=== PATIENT | female | born 1965 | race Caucasian/White ===

== ENCOUNTER 2019-11-17 12:58 | Outpatient (REF) | payer OTHER, SELFPAY ==
--- NOTE | 2019-11-17 | US_ITS ---
EXAMINATION: US PELVIS, COMPLETE CLINICAL INFORMATION: Leiomyomata of uterus; postmenopausal patient. COMPARISON: Pelvic ultrasound dated 02/27/2015. TECHNIQUE: Transabdominal and transvaginal imaging was performed. FINDINGS: The uterus is of normal size and echogenicity measuring 11.9 x 6.5 x 7.4 cm. The uterus is anteverted and anteflexed. The endometrial stripe is poorly visualized due to extensive fibroids. FIBROIDS: There are 7 dominant fibroids seen. There are further smaller fibroids which are not measured. 1. Location: Upper leftward body, subserosal. Size: 2.8 x 2.1 x 2.6 cm. Fibroid characteristics: Heterogeneous echotexture. 2. Location: Mid leftward uterine body, subserosal. Size: 4.0 x 3.3 x 3.4 cm. Fibroid characteristics: Heterogeneous echotexture, with shadowing calcifications. 3. Location: Mid fundus, anterior. Size: 2.8 x 1.8 x 2.0 cm. Fibroid characteristics: Heterogeneous echotexture. 4. Location: Posterior midline body, subendometrial. Size: 3.0 x 2.5 x 3.3 cm. Fibroid characteristics: Heterogeneous echotexture. 5. Location: Lower rightward body, myometrial. Size: 5.1 x 5.1 x 4.7 cm. Fibroid characteristics: Heterogeneously hyperechoic. 6. Location: Upper rightward body, subendometrial. Size: 3.4 x 2.6 x 2.5 cm. Fibroid characteristics: Heterogeneously isoechoic. 7. Location: Mid rightward body, myometrial. Size: 4.4 x 3.0 x 3.1 cm. Fibroid characteristics: Heterogeneously hypoechoic. Both ovaries are nonvisualized. There is no pelvic free fluid. No adnexal mass is seen. IMPRESSION: 1. Multiple uterine fibroids are seen, as above. 2. Due to uterine fibroid disease, the endometrial stripe is not visualized. 3. The bilateral ovaries are not visualized.
== END 2019-11-17 12:59 | disposition home or self-care (01) ==
LOC: HO.US 12:58
PROVIDERS: Visit Provider Nurse Practitioner Adult Health
DX: D25.9 Leiomyoma of uterus, unspecified (principal)
CPT/HCPCS: 76830; 76856

== ENCOUNTER 2020-12-31 10:26 | Outpatient (REF) | payer OTHER, SELFPAY ==
[2020-12-31 11:39] LABS: Hematocrit 38.4 % (37.0-47.0); Mean Corpuscular HGB Conc 33.9 g/dl (31.0-35.0); Mean Corpuscular Hemoglobin 30.9 pg (27.0-33.0); Mean Corpuscular Volume 91.2 fL (80.0-98.0); Mean Platelet Volume 9.4 fL (9.4-12.3); Platelet Count 395 X10*3/uL (160-400); Red Blood Count 4.21 X10*6/uL (4.20-5.50); Red Cell Distribution Width 13.7 % (11.0-16.0); White Blood Count 6.9 X10*3/uL (4.8-10.8)
[2020-12-31 12:19] LABS: Appearance Urine CLEAR; Color Urine YELLOW; Glucose Urine UA NEG (NEG); Leukocyte Esterase Urine NEG (NEG); Nitrite Urine NEG (NEG); Urine Blood 1+ (NEG); Urine Ketones NEG (NEG); Urine Protein TRACE MG/DL (NEG-TRACE)
[2020-12-31 12:27] LABS: Squamous Epithelial Cell Urine TRACE /LPF; WBC Urine 0 /HPF (0-4)
[2020-12-31 14:27] LABS: Alanine Aminotransferase 25 U/L (0-31); Albumin Level 4.4 g/dL (3.5-5.0); Alkaline Phosphatase 77 U/L (39-117); Anion Gap 16 (12-20); Aspartate Amino Transferase 23 U/L (5-31); Bilirubin Direct < 0.2 mg/dL (0.0-0.5); Bilirubin Total 0.3 mg/dL (0.0-1.0); Blood Urea Nitrogen 6 mg/dL (9-16); Calcium 9.2 mg/dL (8.4-10.2); Carbon Dioxide 21 mmol/L (22-29); Chloride 106 mmol/L (96-108); Cholesterol 203 mg/dL; Estimated Glomerular Filt Rate > 60; Glucose Random 71 mg/dL (60-115); HDL Cholesterol 87 mg/dL; LDL Cholesterol Calculated 101 mg/dl; Potassium 4.6 mmol/L (3.3-5.1); Sodium 138 mmol/L (135-145); Triglycerides 76 mg/dL
[2020-12-31 14:42] LABS: Thyroid Stimulating Hormone 1.02 uIU/mL (0.32-4.0)
== END 2020-12-31 10:27 | disposition home or self-care (01) ==
LOC: HO.HMGCLDS 10:26
PROVIDERS: PCP Internal Medicine; Visit Provider Internal Medicine
DX: I10 Essential (primary) hypertension (principal)
CPT/HCPCS: 36415; 80048; 80061; 80076; 81001; 81003; 84443; 85027

== ENCOUNTER 2022-02-15 07:18 | Outpatient (REF) | payer OTHER, SELFPAY ==
[2022-02-15 11:12] LABS: Hemoglobin 14.4 g/dl (12.0-16.0); Mean Corpuscular HGB Conc 33.5 g/dl (31.0-35.0); Mean Corpuscular Hemoglobin 30.4 pg (27.0-33.0); Mean Corpuscular Volume 90.7 fL (80.0-98.0); Mean Platelet Volume 9.6 fL (9.4-12.3); Platelet Count 373 X10*3/uL (160-400); Red Blood Count 4.74 X10*6/uL (4.20-5.50); Red Cell Distribution Width 12.8 % (11.0-16.0); White Blood Count 7.4 X10*3/uL (4.8-10.8)
[2022-02-15 11:29] LABS: Alanine Aminotransferase 15 U/L (0-31); Albumin Level 4.4 g/dL (3.5-5.0); Alkaline Phosphatase 84 U/L (39-117); Anion Gap 14 (12-20); Aspartate Amino Transferase 17 U/L (5-31); Bilirubin Direct 0.2 mg/dL (0.0-0.5); Bilirubin Total 0.5 mg/dL (0.0-1.0); Blood Urea Nitrogen 15 mg/dL (9-16); Calcium 9.7 mg/dL (8.4-10.2); Carbon Dioxide 24 mmol/L (22-29); Chloride 107 mmol/L (96-108); Cholesterol 234 mg/dL; Estimated Glomerular Filt Rate > 60; Glucose Random 98 mg/dL (60-115); HDL Cholesterol 74 mg/dL; LDL Cholesterol Calculated 148 mg/dl; Potassium 4.5 mmol/L (3.3-5.1); Sodium 140 mmol/L (135-145); Total Protein 7.1 g/dL (6.5-8.0); Triglycerides 64 mg/dL
[2022-02-15 11:50] LABS: Thyroid Stimulating Hormone 1.92 uIU/mL (0.32-4.0)
== END 2022-02-15 07:19 | disposition home or self-care (01) ==
LOC: HO.HMGCLDS 07:18
PROVIDERS: PCP Internal Medicine; Visit Provider Internal Medicine
DX: I10 Essential (primary) hypertension (principal)
CPT/HCPCS: 36415; 80048; 80061; 80076; 84443; 85027

== ENCOUNTER 2022-03-24 10:38 | Outpatient (REF) | payer OTHER, SELFPAY ==
--- NOTE | ~2022-03-24 | US_ITS ---
EXAMINATION: US PELVIS CLINICAL INFORMATION: Postmenopausal bleeding COMPARISON: 11/17/2019 TECHNIQUE: Ultrasound of the pelvis is performed using both transabdominal and transvaginal transducers along with Doppler. Transvaginal imaging is performed due to inadequate visualization transabdominally. FINDINGS: Uterus: The uterus is anteverted and measures 12.4 x 6.7 x 8.7 cm. The double wall endometrial thickness is 0.5 cm, although evaluation is limited secondary to numerous fibroids and possible submucosal fibroid cannot be excluded. Lobulated uterine contour with numerous fibroids, at least one has a possible submucosal component measuring 3.0 x 2.9 x 3.2 cm. Adnexa: Bilateral ovaries are not visualized, no large adnexal mass. US/US pelvic and transvaginal IMPRESSION: 1. Lobulated uterine contour with numerous fibroids, at least one has a possible submucosal component measuring 3.0 x 2.9 x 3.2 cm. Recommend further evaluation with sonohysterogram given postmenopausal bleeding. 2. The double wall endometrial thickness is 0.5 cm, although evaluation is limited secondary to numerous fibroids and possible submucosal fibroid cannot be excluded. 3. Bilateral ovaries are not visualized. No large adnexal mass.
== END 2022-03-24 10:39 | disposition home or self-care (01) ==
LOC: HO.US 10:38
PROVIDERS: Visit Provider Nurse Practitioner Adult Health
DX: N95.0 Postmenopausal bleeding (principal)
CPT/HCPCS: 76830; 76856

== ENCOUNTER 2022-04-18 13:36 | Outpatient (REF) | payer OTHER, SELFPAY ==
--- NOTE | ~2022-04-18 | CT_ITS ---
EXAMINATION: CT CHEST SCREENING CLINICAL INFORMATION: 56-year-old current smoker with 42 pack year history of smoking. COMPARISON: None available. TECHNIQUE: Multidetector volumetric CT imaging of the chest is performed without contrast using low dose technique. Additional 2D coronal and sagittal reformatted images and axial 3D maximum intensity projection (MIP) images are generated on the CT workstation. This CT examination was performed using dose optimization techniques as appropriate, variously including the following: *Automated exposure control *Adjustment of mA and/or kV according to patient size (this includes techniques or standardized protocols for targeted exams where dose is matched to indication/reason for exam; i.e. extremities or head) *Use of iterative reconstruction technique DLP: 41 mGy-cm FINDINGS: LUNGS: The central airways are patent. There is bilateral bronchial wall thickening seen without evidence of bronchiectasis. This may be secondary to respiratory bronchiolitis of smoking. No significant emphysematous changes appreciated. No confluent parenchymal disease is seen. There is a small region of what appears be atelectasis or scar about the peripheral lateral aspect right upper lobe on image [address] series #5. There is a small region of ground-glass opacity seen within the right lower lobe adjacent to the major fissure, likely related to atelectasis. MEDIASTINUM: Heart normal size. No pericardial effusion. There is mild nonocclusive aortic arch calcification. No thoracic aortic aneurysm. There is a 1 cm precarinal lymph node present. No hilar lymphadenopathy is appreciated. CORONARY ARTERY CALCIFICATION: None visualized on this study. PLEURA: There is no pleural effusion. No pleural mass or thickening. AXILLA: No lymphadenopathy. UPPER ABDOMEN: Unremarkable. OSSEOUS STRUCTURES: Unremarkable. No destructive bony lesions appreciated. CT/CT lung screening IMPRESSION: No suspicious lung mass identified. Bronchial wall thickening which may be related to respiratory bronchiolitis of smoking. ASSESSMENT: Lung-RADS category 2: Benign RECOMMENDATION: Routine annual low-dose CT screening in 12 months.
== END 2022-04-18 13:37 | disposition home or self-care (01) ==
LOC: HO.CT 13:36
PROVIDERS: Visit Provider Physician Assistant Medical
DX: Z12.2 Encounter for screening for malignant neoplasm of respiratory organs (principal); F17.210 Nicotine dependence, cigarettes, uncomplicated
CPT/HCPCS: 71271; G0296

== ENCOUNTER → 2022-06-11 13:14 | Outpatient (BNVA) | payer OTHER, SELFPAY | PROVIDERS: PCP Internal Medicine; Visit Provider Physician Assistant | DX: Z13.89 Encounter for screening for other disorder (principal) ==

== ENCOUNTER 2022-12-15 07:27 | Day surgery (SDC) | payer OTHER, SELFPAY ==
[2022-12-10 19:12] VITALS: BMI 25.8
--- NOTE | 2022-12-12 13:17 | HO.ANESPROP2 ---
Documented by User: Kelsie Alvarez NP 12/12/22 13:17 HPI - Anesthesia Eval Consult details Narrative: 57yo F for Colonoscopy PMFSH Active Problems Active Problems: All Active Problems (Updated 04/18/22 @ 13:27 by Leti Childs PA-C) Tubular adenoma of colon (Acute ~2018) Essential hypertension (Acute) Nicotine dependence, cigarettes, uncomplicated (Acute) Past Medical History Medical History Uterine fibroid Nicotine dependence, cigarettes, uncomplicated Tubular adenoma of colon (~2018) Essential hypertension Family History Family History Mother High blood pressure Diabetes High cholesterol Surgical History Surgical History History of endometrial biopsy History of colonoscopy Social History Social History Household Members Other:: boyfriend Housing: House Are you a primary daycare director to a significant other at home: No Do you presently have visiting nurse or other home services: No Alcohol intake: current Alcohol intake frequency: a few times a week Patient Tobacco Use Status: Current everyday Tobacco user Tobacco use type: Cigarette Cigarette Packs Per Day: 1 Cigarettes Per Day: 20.0 Years Smoked: 43 Smoked in Last 30 Days: Yes e-Cigarette/Vaping Use: Never Used Patient Interested in Nicotine Replacement: No Patient Given Instructions on How to Stop Smoking: No Second Hand Smoke Exposure: Yes Use of substances other than those prescribed or required for medical reasons: No Have you been hit, kicked, punched, or otherwise hurt by someone within the past year? 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 Cognitive needs: No Hearing needs: No Vision needs: No Meds Allergies Allergy/AdvReac Type Severity Reaction Status Date / Time No Known Allergies Allergy Verified 06/11/22 13:18 Exam Exam Date and Time: December 12, 2022 1317 Height,Weight and Vital Signs: Height 5 ft 6 in Weight 72.575 kg Assessment and Plan Assessment Anesthesia Assessment: Chart Reviewed Documented by User: Janice Varela MD 12/15/22 08:45 PMFSH Active Problems Active Problems: All Active Problems (Updated 12/15/22 @ 08:10 by Janice Varela MD) Tubular adenoma of colon (Acute ~2018) Essential hypertension (Acute) Nicotine dependence, cigarettes- last smoked this morning No documented h/o ED but patient thinks she may have Past Medical History Medical History Uterine fibroid Nicotine dependence, cigarettes, uncomplicated Tubular adenoma of colon (~2019) Essential hypertension Family History Family History Mother High blood pressure Diabetes High cholesterol Family history of problems with anesthesia: No Surgical History Surgical History History of endometrial biopsy History of colonoscopy History of Problems with Anesthesia: No Social History Social History Household Members Other:: boyfriend Housing: House Are you a primary daycare director to a significant other at home: No Do you presently have visiting nurse or other home services: No Alcohol intake: current Alcohol intake frequency: a few times a week Patient Tobacco Use Status: Current everyday Tobacco user Tobacco use type: Cigarette Cigarette Packs Per Day: 1 Cigarettes Per Day: 20.0 Years Smoked: 43 Smoked in Last 30 Days: Yes e-Cigarette/Vaping Use: Never Used Patient Interested in Nicotine Replacement: No Patient Given Instructions on How to Stop Smoking: No Second Hand Smoke Exposure: Yes Use of substances other than those prescribed or required for medical reasons: No Have you been hit, kicked, punched, or otherwise hurt by someone within the past year? 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 Denies broken or loose teeth) Heart: RRR Lungs: CTAB Assessment and Plan Assessment Anesthesia Assessment: Anesthesia Plan Discussed Final Anesthetic Review Family History of Problems with Anesthesia: No History of Problems with Anesthesia: No NPO: Yes ASA Class: II Final Preanesthetic Review: No Changes in Pt Med Stat, Meds/Allgs Chart Reviewed, Consent Obtained/Reviewed and Anes Risks/Benef Reviewed Patient Risk: Intermediate Procedure Risk: Low Assessment/Block/Sedation in SS: Assess/Block/Sedation-SS Anesthetic Plan Anesthetic Plan: MAC: Disposition: Standard PACU
[2022-12-15 08:04] VITALS: BP 145/74; PULSE 79; RESP 16; TEMP 36.6; O2SAT 98
[2022-12-15] MEDS: Lactated Ringers 1,000 ML 100 ML IVCONT (08:05)
--- NOTE | 2022-12-15 08:38 | MHC.SHP ---
Pre-Procedural Eval Section A Date of Service: 12/15/22 The patient is an INPATIENT: No The History & Physical has been completed within 30 days and I have reviewed it.: No Section B Chief Complaint: Surveillance for colon polyps Relevant Family History (Specify if Yes): No Relevant Social History: Tobacco Use Present Medications: see Short Stay Collaborative assessment Medical History: Significant History (Essential hypertension Nicotine dependence, cigarettes, uncomplicated Tubular adenoma of colon (~2019) Uterine fibroid) History of Previous Operations: Relevant previous surgery/procedure and date(s) (History of colonoscopy, history of endometrial biopsy) Allergies: Allergies Allergy/AdvReac Type Severity Reaction Status Date / Time No Known Allergies Allergy Verified 06/11/22 13:18 Review of Systems Sugical H&P ROS: Negative: Constitution, Cardiovascular, Respiratory and Gastrointestinal Exam Surgical H&P Exam: Normal: Heart, Normal: Lungs, Normal: Extremities and Normal: Abdomen Plan Diagnosis/Plan: Unchanged I have reviewed the history and physical and performed a pertinent physical examination on my patient. No changes have occurred unless specified. Time Spent With Patient Time: Total time managing care of this patient today ____ minutes.
--- NOTE | 2022-12-15 08:56 | W.PM.OPN ---
Operative Note Operative Note Date of Service: 12/15/22 Narrative: COLONOSCOPY TILL CECUM WITH SNARE POLYPECTOMY, SUBMUCOSAL INJECTION AND HEMOCLIP PLACEMENT Pre-op diagnosis: surveillance for colon polyps Post-op diagnosis:? colon polyp, AVM, diverticulosis, hemorrhoids Endoscopist:? Johana Marcus MD Anesthesia:?MAC Consent: Indications for the procedure and potential complications of bleeding, perforation, reaction to medications and missed diagnosis were discussed with the patient and informed consent was obtained. Instrument: Olympus PCF H 190 L variable stiffness pediatric colonoscope Monitoring: Vital signs and clinical assessment, intermittent blood pressure monitoring, continuous EKG monitoring, Pulse oximetry and Carbon Dioxide monitoring were done throughout the procedure. Please see anesthesia flowsheet. Colon withdrawl time was 25 minutes. Procedure: The patient was placed in the left lateral decubitis position and pre-procedure medications were administered. After a digital rectal examination of the ano-rectum, the video colonoscope was inserted into the rectum and advanced through the colon to the cecum. The colonoscope was slowly withdrawn in a retrograde panoramic fashion and the colon mucosa was carefully examined including a retroflexed view of the rectum. Findings and interventions are described below. Procedure Difficulty: Without difficulty Findings: Terminal Ileum: Not evaluated Cecum: A 2 cms flat polyp - raised with 5 cc of Eleview and removed with a hot snare. polypectomy site was closed with 2 hemoclips Ascending Colon: A 15 mm non bleeding AVM in the proximal AC Transverse Colon: Normal Descending Colon: moderate diverticulosis Sigmoid Colon: Moderate diverticulosis Rectum: Normal Ano-rectum: Moderate internal hemorrhoids Colon preparation: Excellent after some irrigation Impression and Post Procedure Diagnosis: Colonoscopy Findings: One medium sized polyp removed A 15 mm non bleeding AVM in the proximal AC Moderate diverticulosis seen in the left colon Moderate hemorrhoids on retroflexed exam. Plan: Await pathology results Patient has an appointment on 12/29/22 in the [facility] with JAYDEN Davis. Repeat Colonoscopy interval based on path results - in 3 years if polyps are adenomatous and 5 years if polyps are hyperplastic (past hx of adenomatous colon polyps). Above findings were reviewed with the patient and colon polyps and diverticulosis handouts were given in the discharge area
[2022-12-15 09:40] VITALS: BP 130/64; PULSE 77; RESP 16; TEMP 36.1; O2SAT 99
[2022-12-15 09:57] VITALS: BP 155/75; PULSE 73; RESP 17; TEMP 36.1; O2SAT 100
== END 2022-12-15 10:33 | disposition home or self-care (01) ==
PROVIDERS: PCP Internal Medicine; Visit Provider Internal Medicine Gastroenterology
PROC: 0DJD8ZZ Inspection of Lower Intestinal Tract, Via Natural or Artificial Opening Endoscopic (ICD-10-PCS; CPT 45378; principal; 2022-12-15 09:20)
DX: Z12.11 Encounter for screening for malignant neoplasm of colon (principal); Z86.010 Personal history of colon polyps; K63.5 Polyp of colon; K55.20 Angiodysplasia of colon without hemorrhage; K57.30 Diverticulosis of large intestine without perforation or abscess without bleeding; K64.8 Other hemorrhoids; I10 Essential (primary) hypertension; D25.9 Leiomyoma of uterus, unspecified; Z79.899 Other long term (current) drug therapy; F17.210 Nicotine dependence, cigarettes, uncomplicated
CPT/HCPCS: 45385; 45381; 88305; J2250

== ENCOUNTER → 2022-12-15 07:27 | Outpatient (BNV) | payer OTHER, SELFPAY | PROVIDERS: PCP Internal Medicine; Visit Provider Internal Medicine Gastroenterology | DX: Z12.11 Encounter for screening for malignant neoplasm of colon (principal); Z86.010 Personal history of colon polyps; D17.5 Benign lipomatous neoplasm of intra-abdominal organs; K57.90 Diverticulosis of intestine, part unspecified, without perforation or abscess without bleeding | CPT/HCPCS: 45381; 45385 ==

== ENCOUNTER 2022-12-25 15:09 | Outpatient (AMB) | payer OTHER, SELFPAY ==
--- NOTE | 2022-12-25 15:19 | A.OFFPC_ITS ---
Vital Signs 12/25/22 15:24 Height 5 ft 6 in Weight 171 lb 6 oz BMI 27.7 BP 124/70 Blood Pressure Location Lt brachial Position Sitting Pulse 76 Pulse Source Pulse Oximeter Pulse Oximetry (%) 98 Oxygen Delivery Method Room Air Intake Visit Reasons: PE Intake Note: Patient is here today for a physical. 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 Required: No Author'S Agent: Not Required per policy Accompanied by: Self / Same As Patient Allergies No Known Allergies Allergy (Verified 12/26/22 14:59) Medication List - Last Reconciled 12/26/22 by Elijah Parish MD enalapril maleate 5 mg PO DAILY Tobacco use date assessed: 12/25/22 Dental Screening Dental Screen Date: 12/25/22 Did you have a dental visit in the last 12 months?: Yes Did you have a dental problem in the last 6 months where you did not have access to dental care?: No Was dental information given to patient?: Patient has dentist HPI PE HPI Details 57-year-old female presents to the offic e requesting an annual physical. [facility] Medical History Uterine fibroid Nicotine dependence, cigarettes, uncomplicated Tubular adenoma of colon (~2019) Essential hypertension Surgical History History of endometrial biopsy History of colonoscopy Family History Mother High blood pressure Diabetes High cholesterol Social History Household Members Other:: boyfriend Housing: House Are you a primary intensive care ambulance paramedic to a significant other at home: No Do you presently have visiting nurse or other home services: No Alcohol intake: current Alcohol intake frequency: a few times a week Patient Tobacco Use Status: Current everyday Tobacco user Tobacco use type: Cigarette Cigarette Packs Per Day: 1 Cigarettes Per Day: 20.0 Years Smoked: 43 e-Cigarette/Vaping Use: Never Used Second Hand Smoke Exposure: Yes service: No Current occupational status: employed Current occupation: [employer] Cognitive needs: No Hearing needs: No Vision needs: No Questionnaire PHQ-9 Over the last 2 weeks, how often have you been bothered by any of the following problems? 1. Little interest or pleasure in doing things: not at all 2. Feeling down, depressed, or hopeless: not at all 3. Trouble falling or staying asleep, or sleeping too much: not at all 4. Feeling tired or having little energy: not at all 5. Poor appetite or overeating: not at all 6. Feeling bad about yourself - or that you are a failure or have let yourself or your family down: not at all 7. Trouble concentrating on things, such as reading the newspaper or watching television: not at all 8. Moving or speaking so slowly that other people could have noticed. Or the opposite - being so fidgety or restless that you have been moving around a lot more than usual: not at all 9. Thoughts that you would be better off or of hurting yourself in some way: not at all Total score: 0 Depression Screening Interpretation: Negative Depression Screening Done: Yes Source: Developed by Drs. Michele Santiago, Nereyda Mak, Alex Zepeda and colleagues, with an educational bo from [employer] Thrive Questionnaire Date Thrive assessed: 12/25/22 I am a: Patient What is your living situation today?: I have a steady place to live Within the past 12 months, did the food you bought not last and you didn't have the money to get more?: Never true Within the past 12 months, did you worry whether your food would run out before you got money to buy more?: Never true Do you have trouble paying for medicines?: No Do you have trouble getting transportation to medical appointments?: No Do you have trouble paying your heating and electricity bill?: No Do you have trouble taking care of your child, family member or friend?: No Do you have trouble with day-to-day activities such as bathing, preparing meals, shopping, managing finances, etc.?: No Are you currently unemployed and looking for a job?: No Are you interested in more education?: No Currently or been in a relationship where the following occur: no concerns reported AUDIT C Alcohol Use Questionnaire (AUDIT-C) 1. How often do you have a drink containing alcohol?: 2-3 times a week 2. How many drinks containing alcohol do you have on a typical day when you are drinking?: 1 or 2 Total Score: 3 SAMSON-7 AMB Questionnaire SAMSON-7 Date SAMSON - 7 assessed: 12/25/22 Feeling nervous, anxious, or on edge: 0 = Not at all Not being able to stop or control worryin = Not at all Worrying too much about different things: 0 = Not at all Trouble relaxin = Not at all Being so restless that it is hard to sit still: 0 = Not at all Becoming easily annoyed or irritable: 0 = Not at all Feeling afraid as if something awful might happen: 0 = Not at all Total SAMSON-7 score (0-4 normal; 5-9 mild; 10-14 moderate; 15-21 severe): 0 Source: Developed by Drs. Michele Santiago, Nereyda Mak, Alex Zepeda and colleagues, with an educational bo from [employer] Physical exam (Primary Care) Vital Signs: Last Vital Signs Pulse 76 12/25/22 15:24 BP 124/70 12/25/22 15:24 Pulse Ox 98 12/25/22 15:24 Oxygen Delivery Method Room Air 12/25/22 15:24 Care Plan Goal for BP management: Blood pressure is in range. Continue lisinopril at same dosage. BMI result Body Mass Index 27.7 Tobacco/Smoking Status: Tobacco use Status Tobacco use date assessed 12/25/22 12/25/22 15:32 Patient Tobacco Use Status Current everyday Tobacco 12/25/22 15:21 Tobacco use type Cigarette 12/25/22 15:21 e-Cigarette/Vaping Use Never Used 12/25/22 15:21 Are you ready to quit: No Tobacco cessation counseling provided: No PHQ-9: PHQ-9 Score PHQ-9: Total score 0 12/25/22 15:59 Depression Screening Interpretation: Negative Thrive Assessment: Date of Thrive Assessment Date Thrive assessed 12/25/22 12/25/22 15:21 Currently or been in a relationship where the following occur: no concerns reported Advance Care Planning discussion: Exists, not on file Date of discussion: 12/26/22 Who was present: Patient Forms completed: Health Care Proxy Actual minutes spent: 5 Const General: cooperative and healthy appearing Nutritional Appearance: well nourished Orientation/consciousness: patient oriented x3 Limitations: no limitations HENMT Head: Yes normal to inspection Eyes General: appearance normal, both eyes and all related structures Neck Neck: Yes normal visual inspection Chest Chest palpation & inspection: normal palpation of entire chest wall Resp Effort & Inspection: normal respiratory effort Neuro General: patient oriented x3 Office Procedures Flu Questionnaire Does the patient have a severe egg allergy?: No Does the patient have severe life threatening allergies?: No Does the patient have a fever or illness today?: No Has the patient ever had Guillain-Reedley Syndrome?: No Has the patient ever had any past reaction to a flu shot?: No Immunizations flu vacc [id number] 6mos up(PF) 60 mcg(15 mcgx4)/0.5 mL IM syringe Performing Provider: Elijah Parish MD [facility] Administered by: DANA Haque on 12/25/22 16:00 Dose Route Admin Location Dispensed Lot Number Expiration Date NDC Sound Engineer 0.5 mL IM Left Deltoid 0.5 mL [id number] 08/09/23 64510-481-82 [employer]anno VIS Given Date VIS Provided VIS Publication Date 12/25/22 Single Vaccine 20 Eligibility Eligibility Date Funding Source Not [facility] Eligible 12/25/22 Private Assessment and Plan Assessment & Plan (1) Essential hypertension: Code(s): I10 - Essential (primary) hypertension Plan: Blood pressure is in range. Continue lisinopril at same dosage. (2) Nicotine dependence, cigarettes, uncomplicated: Comment: (current smoker - onset 14yo, 1ppd x 42yrs, 40pyh) Code(s): F17.210 - Nicotine dependence, cigarettes, uncomplicated Plan: Patient was counseled to quit smoking. Patient had a lung cancer screening and the results were reviewed with her. Orders: Orders Basic Metabolic Panel 12/25/22 I10 - Essential (primary) hypertension Complete Blood Count no Diff 12/25/22 I10 - Essential (primary) hypertension Lipid Panel 12/25/22 I10 - Essential (primary) hypertension Influenza [id number] Immunization 12/25/22 Z23 - Encounter for immunization Liver Panel 12/25/22 I10 - Essential (primary) hypertension Thyroid Stimulating Hormone 12/25/22 I10 - Essential (primary) hypertension UA and rflx microscopic 11/16/23 I10 - Essential (primary) hypertension Coding Level of Care Code Est Pt Prev Care 40-64y(42423) Diagnoses Essential hypertension I10 Nicotine dependence, cigarettes, uncomplicated F17.210 Additional Codes Vital Signs *Quality* - Advance Care Planning discussion: Exists, not on file ([id number])
[2022-12-25 15:24] VITALS: BP 124/70; PULSE 76; O2SAT 98; BMI 27.7
== END 2022-12-25 16:00 | disposition home or self-care (01) ==
PROVIDERS: PCP Internal Medicine; Visit Provider Internal Medicine
DX: Z23 Encounter for immunization (principal)
CPT/HCPCS: 1123F; 90471; 90686; 99396

== ENCOUNTER 2022-12-29 06:03 | Outpatient (REF) | payer OTHER, SELFPAY ==
[2022-12-29 11:36] LABS: Appearance Urine Clear; Color Urine Yellow; Glucose Urine UA Negative (Negative); Leukocyte Esterase Urine Negative (Negative); Nitrite Urine Negative (Negative); PH 5.5 (5.0-9.0); Specific Gravity - Urine <= 1.005 (1.005-1.025); UMIC TRIGGER UA YES; Urine Blood Moderate (2+) (Negative); Urine Ketones Negative (Negative); Urine Protein Negative (Neg-Trace)
[2022-12-29 11:42] LABS: Hematocrit 43.7 % (37.0-47.0); Hemoglobin 14.4 g/dl (12.0-16.0); Mean Corpuscular Hemoglobin 30.1 pg (27.0-33.0); Mean Corpuscular Volume 91.2 fL (80.0-98.0); Mean Platelet Volume 9.4 fL (9.4-12.3); Platelet Count 433 X10*3/uL (160-400); Red Blood Count 4.79 X10*6/uL (4.20-5.50); Red Cell Distribution Width 12.9 % (11.0-16.0); White Blood Count 7.6 X10*3/uL (4.8-10.8)
[2022-12-29 11:53] LABS: Bacteria Urine Trace (None Seen); Hyaline Casts Urine 0-2 /LPF (0-2); WBC Urine 0-5 /HPF (0-5)
[2022-12-29 12:15] LABS: Alanine Aminotransferase 16 U/L (0-31); Albumin Level 4.3 g/dL (3.5-5.0); Alkaline Phosphatase 81 U/L (39-117); Anion Gap 11 (12-20); Aspartate Amino Transferase 19 U/L (5-31); Bilirubin Direct 0.1 mg/dL (0.0-0.5); Bilirubin Total 0.3 mg/dL (0.0-1.0); Blood Urea Nitrogen 9 mg/dL (9-16); Calcium 9.3 mg/dL (8.4-10.2); Carbon Dioxide 24 mmol/L (22-29); Chloride 106 mmol/L (96-108); Cholesterol 213 mg/dL (<200); Estimated Glomerular Filt Rate > 60; Glucose Random 79 mg/dL (60-115); HDL Cholesterol 67 mg/dL (>40); LDL Cholesterol Calculated 124 mg/dL (<100); Potassium 4.4 mmol/L (3.3-5.1); Sodium 137 mmol/L (135-145); Thyroid Stimulating Hormone 1.68 uIU/mL (0.32-4.0); Total Protein 7.2 g/dL (6.5-8.0); Triglycerides 113 mg/dL (<150)
== END 2022-12-29 06:04 | disposition home or self-care (01) ==
LOC: HO.HMGCLDS 06:03
PROVIDERS: PCP Internal Medicine; Visit Provider Internal Medicine
DX: I10 Essential (primary) hypertension (principal)
CPT/HCPCS: 36415; 80048; 80061; 80076; 81001; 84443; 85027

== ENCOUNTER 2023-01-28 14:44 | Outpatient (AMB) | payer OTHER, SELFPAY ==
--- NOTE | 2023-01-28 14:48 | A.OFFVIS_ITS ---
Intake Vital Signs 01/28/23 14:49 Height 5 ft 6 in Weight 167 lb BMI 27.0 BP 141/63 H Blood Pressure Location Lt brachial Position Sitting Pulse 75 Intake Visit Reasons: r/s from 12/29 Intake Note: Patient follow up for Colonoscopy results. Patient denies any GI issues. Sharemilker Required: No Accompanied by: Self / Same As Patient Allergies No Known Allergies Allergy (Verified 01/28/23 14:48) Medication List - Last Reconciled 01/28/23 by Juliet Adorno PA-C enalapril maleate 5 mg PO DAILY PFSH Medical History Uterine fibroid Nicotine dependence, cigarettes, uncomplicated Tubular adenoma of colon (~2019) Essential hypertension Surgical History History of endometrial biopsy History of colonoscopy Family History Mother High blood pressure Diabetes High cholesterol Social History Household Members Other:: boyfriend Housing: House Are you a primary home care and home health aides teacher to a significant other at home: No Do you presently have visiting nurse or other home services: No Alcohol intake: current Alcohol intake frequency: a few times a week Patient Tobacco Use Status: Current everyday Tobacco user Tobacco use type: Cigarette Cigarette Packs Per Day: 1 Cigarettes Per Day: 20.0 Years Smoked: 43 e-Cigarette/Vaping Use: Never Used Second Hand Smoke Exposure: Yes service: No Current occupational status: employed 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 Cognitive needs: No Hearing needs: No Vision needs: No Review of Systems Const All systems reviewed & are unremarkable except as noted in HPI and below Card Denies chest pain and Denies dyspnea Resp Denies dyspnea Physical Exam Vital Signs: Last Vital Signs Pulse 75 01/28/23 14:49 BP 141/63 H 01/28/23 14:49 BMI result Body Mass Index 27.0 Const General: cooperative, healthy appearing, comfortable and no acute distress Eyes Conjunctivae: conjunctivae normal Resp Effort & Inspection: normal respiratory effort and able to speak in complete sentences Auscultation: clear to auscultation bilaterally, no rales, no rhonchi and no wheezes GI Palpation (GI): Soft to palpation and nontender Auscultation: normal bowel sounds Skin General skin exam: no rashes or lesions noted Extrem General: Yes full ROM Psych Appearance: grossly normal Mental Status: mental status grossly normal Speech and movement: Normal speech and movement present and Clear speech present Affect: normal affect Attitude: cooperative Thought process: Normal thought process present Thought content: Normal thought content present Results Reviewed Results Reviewed: Findings: Terminal Ileum: Not evaluated Cecum: A 2 cms flat polyp - raised with 5 cc of Eleview and removed with a hot snare. polypectomy site was closed with 2 hemoclips Ascending Colon: A 15 mm non bleeding AVM in the proximal AC Transverse Colon: Normal Descending Colon: moderate diverticulosis Sigmoid Colon: Moderate diverticulosis Rectum: Normal Ano-rectum: Moderate internal hemorrhoids Colon preparation: Excellent after some irrigation Impression and Post Procedure Diagnosis: Colonoscopy Findings: One medium sized polyp removed A 15 mm non bleeding AVM in the proximal AC Moderate diverticulosis seen in the left colon Moderate hemorrhoids on retroflexed exam. Plan: Await pathology results Patient has an appointment on 12/29/22 in the [facility] with JAYDEN Davis. Repeat Colonoscopy interval based on path results - in 3 years if polyps are adenomatous and 5 years if polyps are hyperplastic (past hx of adenomatous colon polyps). Above findings were reviewed with the patient and colon polyps and diverticulosis handouts were given in the discharge area Findings: Terminal Ileum: Not evaluated Cecum: A 2 cms flat polyp - raised with 5 cc of Eleview and removed with a hot snare. polypectomy site was closed with 2 hemoclips Ascending Colon: A 15 mm non bleeding AVM in the proximal AC Transverse Colon: Normal Descending Colon: moderate diverticulosis Sigmoid Colon: Moderate diverticulosis Rectum: Normal Ano-rectum: Moderate internal hemorrhoids Colon preparation: Excellent after some irrigation Impression and Post Procedure Diagnosis: Colonoscopy Findings: One medium sized polyp removed A 15 mm non bleeding AVM in the proximal AC Moderate diverticulosis seen in the left colon Moderate hemorrhoids on retroflexed exam. Plan: Await pathology results Patient has an appointment on 12/29/22 in the GI Clinic with JAYDEN Davis. Repeat Colonoscopy interval based on path results - in 3 years if polyps are adenomatous and 5 years if polyps are hyperplastic (past hx of adenomatous colon polyps). Above findings were reviewed with the patient and colon polyps and diverticulosis handouts were given in the discharge area Assessment & Plan Assessment & Plan (1) Lipoma of colon: Code(s): D17.5 - Benign lipomatous neoplasm of intra-abdominal organs Plan: repeat colon 5 years (2) Diverticulosis: Code(s): K57.90 - Diverticulosis of intestine, part unspecified, without perforation or abscess without bleeding Plan: ER protocol (3) Hemorrhoids: Code(s): K64.9 - Unspecified hemorrhoids Plan: Avoid straining Maintain high-fiber diet Medications: New calcium polycarbophil (Fiber Laxative (calcium polycarbophil)) 1,250 mg (2 x 625 mg) PO DAILY 30 days 60 tabs 3RF Patient Instructions: 57-year-old female follows up after recent screening colonoscopy Reviewed procedure report, pathology and recommendations Repeat asymptomatic colonoscopy 5 years Maintain high-fiber diet, fiber supplements are beneficial she will give trial Avoid straining with hemorrhoid Reviewed diverticulosis/diverticulitis ER protocol Opportunity for questions answered to her satisfaction Coding Level of Care Code Est Pt Level 3 (33335) Diagnoses Lipoma of colon D17.5 Diverticulosis K57.90 Hemorrhoids K64.9 Time Spent (min) 30
[2023-01-28 14:49] VITALS: BP 141/63; PULSE 75; BMI 27.0
== END 2023-01-28 15:54 | disposition home or self-care (01) ==
PROVIDERS: PCP Internal Medicine; Visit Provider Physician Assistant
DX: D17.5 Benign lipomatous neoplasm of intra-abdominal organs (principal); K57.90 Diverticulosis of intestine, part unspecified, without perforation or abscess without bleeding; K64.9 Unspecified hemorrhoids
CPT/HCPCS: 99213

== ENCOUNTER → 2023-01-28 14:44 | Outpatient (BNVA) | payer OTHER, SELFPAY | PROVIDERS: PCP Internal Medicine; Visit Provider Physician Assistant ==

== ENCOUNTER 2023-05-06 15:47 | Outpatient (REF) | payer OTHER, SELFPAY ==
--- NOTE | ~2023-05-06 | CT_ITS ---
EXAMINATION: CT LUNG SCREENING CLINICAL INFORMATION: Current smoker. One pack per day. 43 pack-year history. COMPARISON: CT lung screening 04/18/2022. TECHNIQUE: Multidetector volumetric CT imaging of the chest is performed without contrast using low dose technique. Additional 2D coronal and sagittal reformatted images and axial 3D maximum intensity projection (MIP) images are generated on the CT workstation. This CT examination was performed using dose optimization techniques as appropriate, variously including the following: *Automated exposure control *Adjustment of mA and/or kV according to patient size (this includes techniques or standardized protocols for targeted exams where dose is matched to indication/reason for exam; i.e. extremities or head) *Use of iterative reconstruction technique DLP: 48 mGy-cm. FINDINGS: LUNGS: Mild emphysematous changes are present with bronchial wall thickening. There is a 3 mm nodule in the right upper lobe (5: 1:30), which was not present with certainty at the time of the prior study. There was a previously seen 4 mm subpleural right upper lobe nodule, which appears smaller measuring 3 mm (5:119 compare prior 5:103). No suspicious lung masses are seen. MEDIASTINUM: The mediastinum is normal. CORONARY ARTERY CALCIFICATION: Mild. PLEURA: There is no pleural effusion. No pleural mass or thickening. AXILLA: No lymphadenopathy. UPPER ABDOMEN: Unremarkable. OSSEOUS STRUCTURES: Unremarkable. CT/CT lung screening IMPRESSION: No findings worrisome for malignancy. New 3 mm nodule right upper lobe with resolved 4 mm nodule right upper lobe. Underlying emphysema and bronchial thickening. ASSESSMENT: Lung-RADS category 2: Benign. RECOMMENDATION: Routine annual low-dose CT screening in 12 months.
== END 2023-05-06 15:48 | disposition home or self-care (01) ==
LOC: HO.CT 15:47
PROVIDERS: PCP Internal Medicine; Visit Provider Nurse Practitioner Family
DX: Z12.2 Encounter for screening for malignant neoplasm of respiratory organs (principal); F17.210 Nicotine dependence, cigarettes, uncomplicated
CPT/HCPCS: 71271

== ENCOUNTER 2024-05-26 15:03 | Outpatient (AMB) | payer OTHER, SELFPAY ==
--- NOTE | 2024-05-26 15:06 | A.OFFVIS_ITS ---
Vital Signs 05/26/24 15:08 Height 5 ft 6 in Weight 168 lb BMI 27.1 BP 155/71 H Blood Pressure Location Lt brachial Position Sitting Pulse 78 Pulse Oximetry (%) 97 Oxygen Delivery Method Room Air Intake Visit Reasons: Rectal bleeding was a Juliet patient Intake Note: Patient complex follow up for Rectal bleeding was a Juliet loving 01/28/2023 for Diverticulosis and last Colonoscopy was 12/15/[address] Marcus with 3 to 5 yrs Colonoscopy recall. Patient cc: hemorrhoids with some rectal bleeding on and off, denies any other GI issues. Scientific Informatics Analyst Required: No Accompanied by: Self / Same As Patient Allergies No Known Allergies Allergy (Verified 05/26/24 15:06) Medication List - Last Reconciled 05/26/24 by Misti Aponte CNP calcium polycarbophil (Fiber Laxative (calcium polycarbophil)) 1,250 mg (2 x 625 mg) PO DAILY 30 days enalapril maleate 5 mg PO DAILY hydrocortisone 1% 1 appl [place] BID PRN methylcellulose (laxative) (Citrucel) 500 mg PO DAILY HPI HPI Rectal bleeding was a Juliet patient: Details: Patient is a 58-year-old female with PMH of hypertension and nicotine dependence. Last visit with JAYDEN Conteh 01/28/2023 for diverticulosis. Pt is here today for evaluation of blood in stools. She reports onset of bright red bleeding with wiping 1-2x/week X couples months ago . She reports daily bowel movement with loose stools, type 7. She denies straining. States she did not take fiber tablet as prescribed back in 2022. Associated symptoms:denies Patient denies: systemic symptoms, n/v, appetite changes, regurgitation, unintentional wt loss, ab pain, dysphasia, cardiopulmonary symptoms, bladder changes or melena. Common foods consumed: granola bars pork chops, regrinder, chilli minimal vegetables and fruits water for hydration Shares she is now receiving her PCP care at [facility] in [place] X 6 months. Social hx: 6 beers/week denies recreational drug use 1 ppd nicotine dependence denies personal hx of CA Family hx: denies PFSH Medical History (Updated 05/26/24 @ 16:02 by Misti Aponte CNP) Blood in stool Uterine fibroid Nicotine dependence, cigarettes, uncomplicated Tubular adenoma of colon (~2019) Essential hypertension Surgical History History of endometrial biopsy History of colonoscopy Family History Mother High blood pressure Diabetes High cholesterol Social History Household Members Other:: boyfriend Housing: House Are you a primary home care chaplain to a significant other at home: No Do you presently have visiting nurse or other home services: No Alcohol intake: current Alcohol intake frequency: a few times a week Patient Tobacco Use Status: Current everyday Tobacco user Tobacco use type: Cigarette Cigarette Packs Per Day: 1 Cigarettes Per Day: 20.0 Years Smoked: 43 e-Cigarette/Vaping Use: Never Used Second Hand Smoke Exposure: Yes service: No Current occupational status: employed 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 Cognitive needs: No Hearing needs: No Vision needs: No Review of Systems Const Reports as per HPI ENT Reports as per HPI Card Reports as per HPI Resp Reports as per HPI GI Reports as per HPI Reports as per HPI Physical Exam Vital Signs: Last Vital Signs Pulse 78 05/26/24 15:08 BP 155/71 H 05/26/24 15:08 Pulse Ox 97 05/26/24 15:08 Oxygen Delivery Method Room Air 05/26/24 15:08 BMI result Body Mass Index 27.1 Const General: healthy appearing, no acute distress and well developed Nutritional Appearance: well nourished Orientation/consciousness: patient oriented x3 HEENT Head: Yes normal to inspection, Yes normocephalic and Yes atraumatic Face and sinus: Yes normal facial exam Eyes General: appearance normal, both eyes and all related structures Neck Neck: Yes normal visual inspection Resp Effort & Inspection: normal respiratory effort, able to speak in complete sentences, no tracheal deviation and symmetric chest movement Auscultation: clear to auscultation bilaterally Cardio Jugular venous distension: no JVD Rate: regular rate Rhythm: regular rhythm Heart sounds: S1 normal heart sound present, S2 normal heart sound present, no gallops and no murmurs GI Inspection: Yes normal to inspection and No distended Palpation (GI): Soft to palpation, not firm, nontender and No hepatosplenomegaly present Auscultation: normal bowel sounds Neuro General: patient oriented x3 Gait exam (Neuro): Normal gait present Psych Appearance: grossly normal Mental Status: mental status grossly normal Speech and movement: Normal speech and movement present Affect: normal affect Attitude: cooperative Thought process: Normal thought process present Thought content: Normal thought content present Insight: Good insight present (Psych) Judgement: Good judgement present (Psych) Assessment & Plan Assessment & Plan (1) Blood in stool: Code(s): K92.1 - Melena Category: Medical Plan: Without alarm symptoms. Likely secondary to hemorrhoids or irritation from wiping. Known diverticulosis. Last colonoscopy 12/15/2022, cecum polypectomy- submucosal lipoma. Repeat colonoscopy due 2027. She decline TERESA today. We will obtain CBC to rule out any anemia. We will also trial supportive care as below. (2) Hemorrhoids: Code(s): K64.9 - Unspecified hemorrhoids Category: Medical Qualifiers: Hemorrhoid type: unspecified Qualified Code(s): K64.9 - Unspecified hemorrhoids Plan: We will trial topical hydrocortisone. She would benefit from bulky stools. We will trial fiber tablet. Also encouraged to include fiber in diet, examples provided. Reinforced lifestyle modifications to promote bulking of stools: -higher fiber diet -adequate hydration with water -150 minutes of moderate intensity exercise per week Plan Follow-up in 4 weeks or sooner as needed Time: I spent a total of 45 minutes on the date of encounter which includes: Preparing to see the patient (reviewed previous documentation, test results and medical history) Performing a medically appropriate exam and/or evaluation Ordering medications, tests, and procedures Documenting clinical information in the health record Orders: Orders Complete Blood Count Auto Diff Today K64.9 - Unspecified hemorrhoids Medications: New hydrocortisone 1% Apply sparingly, up to twice daily as needed 1 appl [place] BID PRN 28.4 grams 2RF hemorrhoids methylcellulose (laxative) (Citrucel) 500 mg PO DAILY 90 tabs 1RF Coding Level of Care Code Established Pt Est Pt Level 3 (37636) Patient Type Established Diagnoses Blood in stool K92.1 Hemorrhoids, unspecified hemorrhoid type K64.9 Hemorrhoid type: unspecified
[2024-05-26 15:08] VITALS: BP 155/71; PULSE 78; O2SAT 97; BMI 27.1
--- OUTSIDE RECORDS SUMMARY | 2024-05-26 17:50 | XMS_ITS | Data Portability ---
Author Organization JAYDEN Arce s, [address] Address [address] [place] [address] Assessment No assessment recorded. Plan of Treatment Reminders Order Date Submit Date Provider Last Modified By Organization Details Last Modified Time Details Appointments None recorded. Lab None recorded. Referral None recorded. Procedures None recorded. Surgeries None recorded. Imaging None recorded. Medication Orders prednisone 20 mg tablet 2022 023 [facility], [address] [place], [address], 3 19:45:31 Allergy Relief (fluticason e) 50 mcg/actuati on nasal spray,suspe nsion 2022 023 [facility], [address] [place], [address], 3 19:45:31 neomycin-po lymyxin-hyd rocort 3.5 mg-10,000 unit/mL-1 % ear drops,susp 2022 023 [facility], [address] [place], [address], 3 19:45:32 prednisone 20 mg tablet 2022 023 [facility], [address] [place], [address], 3 19:27:34 Allergy Relief (fluticason e) 50 mcg/actuati on nasal spray,suspe nsion 2022 023 [facility] [address] [facility] [place], [address], 19:27:32 Patient TargetsNo targets recorded. Patient Instructions Encounter Date Encounter Id Patient Instructions Last Modified By Organization Details Last Modified Time 03/09/2022 [id number] hearing loss: ca re instructions [email or web address] Not available 03/09/2022 18:30:06 Sinusitis is an infection of the lining of the sinus cavities in your head. Sinusitis often follows a cold. It causes pain and pressure in your head and face. In most cases, sinusitis gets better on its own in 1 to 2 weeks. But some mild symptoms may last for several weeks. Sometimes antibiotics are needed. if you are having problems. It's also a good idea to know your test results and keep a list of the medicines you take. How can you care for yourself at home? Take an vtzn-fox-pxhoqml pain medicine. Avoid Ibuprofen, Aleve and Aspirin if . If the doctor prescribed antibiotics, take them as directed. Do not stop taking them just because you feel better. You need to take the full course of antibiotics. Be careful when taking rinf-udy-nyhezxx cold or influenza (flu) medicines and Tylenol at the same time. Many of these medicines have acetaminophen, which is Tylenol. Read the labels to make sure that you are not taking more than the recommended dose. Too much acetaminophen (Tylenol) can be harmful. Breathe warm, moist air from a steamy shower, a hot bath, or a sink filled with hot water. Avoid cold, dry air. Using a humidifier in your home may help. Follow the directions for cleaning the machine. Use saline (saltwater) nasal washes. This can help keep your nasal passages open and wash out mucus and bacteria. You can buy saline nose drops at a grocery store or drugstore. Or you can make your own at home by adding 1 teaspoon (5 millilitres) of salt and 1 teaspoon (5 millilitres) of baking soda to 2 cups (500 mL) of distilled water. If you make your own, fill a bulb syringe with the solution, insert the tip into your nostril, and squeeze gently. Blow your nose. Put a hot, wet towel or a warm gel pack on your face 3 or 4 times a day for 5 to 10 minutes each time. Try a decongestant nasal spray like oxymetazoline (Drixoral). Do not use it for more than 3 days in a row. Using it for more than 3 days can make your congestion worse. Not available 03/09/2022 18:30:06 An ear infection may start with a cold and affect the middle ear (otitis media). It can hurt a lot. Most ear infections clear up on their own in a couple of days and do not need antibiotics. Also, antibiotics do not work against viruses, which may be the cause of your infection. Regular doses of pain relievers are the best way to reduce your fever and help you feel better. How can you care for yourself at home? Take pain medicines exactly as directed. If the doctor gave you a prescription medicine for pain, take it as prescribed. If you are not taking a prescription pain medicine, take an jwmy-ayz-kwwyyff medicine, such as acetaminophen (Tylenol), ibuprofen (Advil, Motrin), or naproxen (Aleve). Read and follow all instructions on the label. Do not take two or more pain medicines at the same time unless the doctor told you to. Many pain medicines have acetaminophen, which is Tylenol. Too much acetaminophen (Tylenol) can be harmful. Plan to take a full dose of pain reliever before bedtime. Getting enough sleep will help you get better. Try a warm, moist face cloth on the ear. It may help relieve pain. If your doctor prescribed antibiotics, take them as directed. Do not stop taking them just because you feel better. You need to take the full course of antibiotics. Not available 03/09/2022 18:32:58 09/04/2022 [id number] Sinusitis is an infection of the lining of the sinus cavities in your head. Sinusitis often follows a cold. It causes pain and pressure in your head and face. In most cases, sinusitis gets better on its own in 1 to 2 weeks. But some mild symptoms may last for several weeks. Sometimes antibiotics are needed. if you are having problems. It's also a good idea to know your test results and keep a list of the medicines you take. How can you care for yourself at home? Take an kbjj-zoy-jbvxmyc pain medicine. Avoid Ibuprofen, Aleve and Aspirin if . If the doctor prescribed antibiotics, take them as directed. Do not stop taking them just because you feel better. You need to take the full course of antibiotics. Be careful when taking jnfh-hss-qokimvh cold or influenza (flu) medicines and Tylenol at the same time. Many of these medicines have acetaminophen, which is Tylenol. Read the labels to make sure that you are not taking more than the recommended dose. Too much acetaminophen (Tylenol) can be harmful. Breathe warm, moist air from a steamy shower, a hot bath, or a sink filled with hot water. Avoid cold, dry air. Using a humidifier in your home may help. Follow the directions for cleaning the machine. Use saline (saltwater) nasal washes. This can help keep your nasal passages open and wash out mucus and bacteria. You can buy saline nose drops at a grocery store or drugstore. Or you can make your own at home by adding 1 teaspoon (5 millilitres) of salt and 1 teaspoon (5 millilitres) of baking soda to 2 cups (500 mL) of distilled water. If you make your own, fill a bulb syringe with the solution, insert the tip into your nostril, and squeeze gently. Blow your nose. Put a hot, wet towel or a warm gel pack on your face 3 or 4 times a day for 5 to 10 minutes each time. Try a decongestant nasal spray like oxymetazoline (Drixoral). Do not use it for more than 3 days in a row. Using it for more than 3 days can make your congestion worse. Not available 09/04/2022 19:45:27 Water in the ear , from swimming or bathing, makes the ear canal prone to infection. Hot and humid weather also predisposes to infection. Symptoms of otitis externa include: ear pain, fullness or itching in the ear, ear drainage, and temporary loss of hearing. These symptoms are similar to those caused by otitis media (middle ear infection). To differentiate between external ear infection and middle ear infection, the provider looks in the ear with an instrument called an otoscope. It is important to distinguish between the two infections, as they are treated differently: External otitis is treated with drops in the ear canal, while middle ear infection is sometimes treated with an antibiotic by mouth. MEASURES YOU SHOULD TAKE TO HELP TREAT EXTERNAL EAR INFECTION: 1. Use the ear drops regularly, as directed on the prescription. 2. The garcia to treatment is getting the drops down into the canal and keeping the medicine there. To accomplish this: Lie on your side, with the unaffected ear down. Put three to four drops in the infected ear canal, then gently pull the outer ear back and forth several times, working the medicine deeper into the ear canal. Remain still, cdbo-jic-wqtu-down for about 15 minutes. 3. Keep the ear as dry as possible. Swimming should be postponed until the infection has cleared. Try to avoid getting water in the ear when bathing. If water does get in the ear, the canal can be gently dried with a hair blow dryer. Use the low heat setting, and keep the blow dryer about six inches from the ear. 4. Sixr-pzz-wscogfx pain medications can relieve discomfort associated with external otitis. Acetaminophen (Tylenol), ibuprofen, or naproxen can be taken, depending on individual preference. 5. Return to the [facility] in about one week. The provider can check to make sure the infection has cleared, continue the medicine if needed, okay a return to swimming, etc. 6. To prevent repeated episodes of otitis externa, try to keep the ear canal dry. Gentle swabbing with Q-tips (never deep into the canal), along with a hair blow dryer (low heat), can be used to dry the ear canal if it gets wet. 7. Should you develop severe pain, fever, severe headache, or stiff neck, see your personal/referral doctor or go to the closest emergency department promptly. Otitis externa does not normally cause these symptoms; another problem, requiring different treatment, could be present Not available 09/04/2022 19:45:23 Reason for Referral None Reported. Problems Name Problem SNOMED Code Status Onset Date Resolution Date Notes Provider Name and Address Organization Details Recorded Time Hypertensive disorder 37323190 Active 2022 JAYDEN Piña [facility] 3 17:51:52 Hypercholestero lemia 89386435 Active 2022 JAYDEN Piña [facility] 3 17:51:57 Problem Notes None recorded. Medical Equipment None Reported. Allergies No known drug allergies Medications Name Sig Start Date Stop Date Status Note LastModified by Organization Details LastModified Time prednisone 20 mg tablet Take 2 tablets every day by oral route in the morning for 4 days. 2022 active Not Available Not Available Not Avai lable neomycin-cristy ymyxin-hydro beena 3.5 mg-10,000 unit/mL-1 % ear drops,susp INSTILL 4 DROPS INTO AFFECTED EAR(S) BY OTIC ROUTE 3 TIMES PER DAY x10 days. 2022 active Not Available Not Available Not Avai lable lisinopril active Not Available Not Av ailable Not Available Allergy Relief (fluticasone ) 50 mcg/actuatio n nasal spray,suspen syd [place] 1 spray every day by intranasal route as directed for 30 days. 2022 active Not Available Not Available Not Avai lable Vitals Date Recorded Body height Body mass index (BMI) Body weight Respiratory rate Oxygen saturation Oxygen saturation in Arterial blood by Pulse oximetry Heart rate Body temperature Systolic blood pressure Diastolic blood pressure Provider Name and Address Organization Details Last Updated DateTime 3 167.64 cm 25.8 kg/m2 95814.7 8 g 16 /min 100 % 100 % 71 /min 98.9 [degF] 138 mm[Hg] 72 mm[Hg] Anila Cardenas PA - [facility] 3 19:29:41 Date Recorded Body height Body mass index (BMI) Body weight Pain severity - 0-10 verbal numeric rating [Score] - Reported Oxygen saturation Oxygen saturation in Arterial blood by Pulse oximetry Heart rate Respiratory rate Body temperature Systolic blood pressure Diastolic blood pressure Provider Name and Address Organization Details Last Updated DateTime 3 167.64 cm 29.1 kg/m2 74530.6 3 g 0 99 % 99 % 84 /min 18 /min 97.4 [degF] 156 mm[Hg] 76 mm[Hg] GARY GUTIERREZ PA - [facility] 3 17:54:13 Social History Question Answer Notes LastModified by Organizat ion Details LastModified Time Tobacco Smoking Status Current Every Day Smoker GARY loya PA - [facility] 03/09/2022 17:52:52 What Is Your Level Of Alcohol Consumption? None Information not available 03/09/2022 Have You Had Direct Contact, Or Contact During Intimacy, With Monkeypox Rash, Scabs, Or Body Fluids From A Person With Monkeypox? No nruszala Information not available 09/04/2022 How Much Tobacco Do You Smoke? 1 PPD Information not available 03/09/2022 Do You Use Any Illicit Or Recreational Drugs? No Information not available 03/09/2022 Have You Recently Traveled Abroad? No Information not available 03/09/2022 Do You Or Have You Ever Used Any Other Forms Of Tobacco Or Nicotine? No Information not available 03/09/2022 Sex: Unknown Functional Status None recorded. Mental Status None recorded. Family History Relationship Description Onset Age of this Age Resolved Age Notes LastModified by Organization Details LastModified Time Father Hypertensive disorder Not available 2022 17:52:16 Mother Hypertensive disorder Not available 2022 17:52:19 Medical History No medical history recorded. Gynecological HistoryNo gynecological history recorded. Obstetrics History GPAL:G 0 P 0 0 0 0 Immunizations Vaccine Type Date Status Note Provider Nam e and Address Organization Details Recorded Time COVID-19, mRNA, LNP-S, PF, 100 mcg/0.5mL dose or 50 mcg/0.25mL dose 05/30/2020 completed Anila Ruszala null, PA - [facility] 09/04/2022 19:27:15 COVID-19, mRNA, LNP-S, PF, 100 mcg/0.5mL dose or 50 mcg/0.25mL dose 06/27/2020 completed Anila Ruszala null, PA - [facility] 09/04/2022 19:27:15 COVID-19, mRNA, LNP-S, PF, 100 mcg/0.5mL dose or 50 mcg/0.25mL dose 01/14/2021 completed Anila Ruszala null, PA - [facility] 09/04/2022 19:27:15 Influenza, split virus, quadrivalent, PF 12/20/2020 completed Anila Ruszala null, PA - [facility] 09/04/2022 19:27:15 Influenza, split virus, quadrivalent, PF 01/23/2022 completed JAYDEN Nicole [facility] 09/04/2022 19:27:15 Past Encounters Encounter ID Performer Location Encounter Start Date Encounter Closed Date Diagnosis/Indication Diagnosis SNOMED-CT Code Diagnosis ICD10 Code Diagnosis [place] [id number] [place] [address] [address] 03/09/2022 17:43:38 03/09/2022 18:35:13 Acute serous otitis media of bilateral ears 8598132424 131799 H65.03 right ear cochlear implant. narrow canal. left ear external canal normal. Otalgia of left ear 1010 475903 H92.02 Acute sinusitis 24941903 J01.90 [id number] [place] Ardon [place] [address] [facility] [address] [place] [address] 09/04/2022 18:57:02 09/04/2022 19:47:00 Otitis externa of bilateral ears 2865704770 519969 H60.93 Acute sinusitis 99815329 J01.90 Health Concerns Section Related Observation LastModified by Organization Detai ls LastModified Time None Recorded Concern Status LastModified by Organization Details LastModified Time None Recorded Advance Directives Directive None Recorded Payers Encounter Date Sequence Insurance Name Policy Number Policy Bradley Covered Member ID Bradley Member ID Guarantor Name 03/09/2022 1 [facility] [id number] [facility] [id number] [facility] 09/04/2022 1 [facility] [id number] [facility] [id number] [facility] Notes Date Note Type Note Provider Name and Address Organization Details Recorded Time 3 text/html Ear problem UCReported bypatient.source of patient informationInformation obtained from patient; Patient arrived at Urgent Care ambulatory; learning styles: auditory Location:bilateral Quality:pain;clogged;decrea sed hearing Severity:moderate Duration:5 days Context:no sick contacts; no recent swimming/water in ear; no recent air travel;history of ear aches/ear infections Modifying Factors:does not hurt to lie on, or pull on ear; does not hurt to chew;cochlear implant Associated Symptoms:nose/sinus problems; right ear surgery , chronic sinus issues. smoker x 30 pack year. Jhony Ardon NP [address] [place], [address], [place] - [facility] 03/09/2022 18:33:49 3 text/html CongestionReported bypatient.Notes:nasal congestion with post nasal drip x 3 days. denies nay fever or fever with chills. no SOB or respiratory distress.Ear Pain Brief HPIReported bypatient.Location:pain radiates to neck; bilateral Onset/Timing:intermittent pain; gradual onset Duration:occurs daily; sensation/episode variable length Quality:aching pain;sharp pain Severity:getting worse; current pain 5/10 Context:recent ear infection Alleviating factors:ototopical antibiotics: ; nasal steroid spray Aggravating factors:sinus infections; allergies; irrigation of ear Associated Symptoms:Cough;nasal congestion;nasal discharge Jhony Ardon NP [address] [place], [address], PA - [facility] 09/04/2022 19:45:46 OBGyn Episode No OBEpisode recorded.
== END 2024-05-26 15:52 | disposition home or self-care (01) ==
LOC: HO.HGI 15:04
PROVIDERS: PCP Internal Medicine; Visit Provider Nurse Practitioner Family
DX: K92.1 Melena (principal); K64.9 Unspecified hemorrhoids
CPT/HCPCS: 99215

== ENCOUNTER 2024-06-13 16:11 | Outpatient (REF) | payer OTHER, SELFPAY ==
[2024-06-13 16:23] LABS: MANUAL DIFF FLAG NO
[2024-06-13 17:13] LABS: Basophils Percent Auto 0.5 % (0-2); Eosinophils Absolute Auto 0.2 X10*3/uL (0.0-0.4); Eosinophils Percent Auto 2.3 % (0-4); Hematocrit 38.2 % (37.0-47.0); Hemoglobin 12.9 g/dl (12.0-16.0); Imm Gran Abs Auto 0.02 X10*3/uL (0.00-0.03); Imm Gran Pct Auto 0.3 % (0.0-0.4); Lymphocytes Absolute Auto 2.2 X10*3/uL (1.2-4.9); Lymphocytes Percent Auto 28.8 % (20-40); Mean Corpuscular HGB Conc 33.8 g/dl (31.0-35.0); Mean Corpuscular Hemoglobin 30.1 pg (27.0-33.0); Mean Platelet Volume 9.2 fL (9.4-12.3); Monocytes Absolute Auto 0.8 X10*3/uL (0.1-1.2); Monocytes Percent Auto 10.8 % (2-11); Neutrophils Absolute Auto 4.4 x10*3/uL (2.0-8.3); Neutrophils Percent Auto 57.3 % (45-73); Platelet Count 374 X10*3/uL (160-400); Red Blood Count 4.29 X10*6/uL (4.20-5.50); Red Cell Distribution Width 14.1 % (11.0-16.0); White Blood Count 7.7 X10*3/uL (4.8-10.8)
--- OUTSIDE RECORDS SUMMARY | 2024-06-13 17:31 | XMS_ITS | Data Portability ---
Author Organization JAYDEN Arce s, [address] Address [address] [place] [address] Assessment No assessment recorded. Plan of Treatment Reminders Order Date Submit Date Provider Last Modified By Organization Details Last Modified Time Details Appointments None recorded. Lab None recorded. Referral None recorded. Procedures None recorded. Surgeries None recorded. Imaging None recorded. Medication Orders prednisone 20 mg tablet 2022 023 [facility], [address] [place], [address], 3 19:45:31 Allergy Relief (fluticason e) 50 mcg/actuati on nasal spray,suspe nsion 2022 023 [facility], [address] [place], [address], 3 19:45:31 neomycin-po lymyxin-hyd rocort 3.5 mg-10,000 unit/mL-1 % ear drops,susp 2022 023 [facility], [address] [place], [address], 3 19:45:32 prednisone 20 mg tablet 2022 023 [facility] [address], [address] [place], [address], 3 19:27:34 Allergy Relief (fluticason e) 50 mcg/actuati on nasal spray,suspe nsion 2022 023 [facility] [address] [facility], [address], 19:27:32 Patient TargetsNo targets recorded. Patient Instructions Encounter Date Encounter Id Patient Instructions Last Modified By Organization Details Last Modified Time 03/09/2022 [id number] hearing loss: ca re instructions [id number] Not [...] care for yourself at home? Take an ambn-ypm-smfjlgy pain medicine. Avoid Ibuprofen, Aleve and Aspirin if . If the doctor prescribed antibiotics, take them as directed. Do not stop taking them just because you feel better. You need to take the full course of antibiotics. Be careful when taking ibsv-kxd-amudfbo cold or influenza (flu) medicines and Tylenol [...] taking a prescription pain medicine, take an qtrj-pxe-dvgdvac medicine, such as acetaminophen (Tylenol), ibuprofen (Advil, [...] of antibiotics. Not available 03/09/2022 18:32:58 09/04/2022 [id number] Sinusitis is an infection of the lining [...] care for yourself at home? Take an qgyq-zin-khvxvfu pain medicine. Avoid Ibuprofen, Aleve and Aspirin if . If the doctor prescribed antibiotics, take them as directed. Do not stop taking them just because you feel better. You need to take the full course of antibiotics. Be careful when taking wypv-ice-ljbeeyx cold or influenza (flu) medicines and Tylenol [...] deeper into the ear canal. Remain still, kbbi-lho-lzcy-down for about 15 minutes. 3. Keep the [...] about six inches from the ear. 4. Ucyc-cux-zvndbfo pain medications can relieve discomfort associated with external otitis. Acetaminophen (Tylenol), ibuprofen, or naproxen can be taken, depending on individual preference. 5. Return to the [facility] in about one week. The provider [...] Address Organization Details Recorded Time Hypertensive disorder 52934597 Active 2022 JAYDEN Piña [facility] 3 17:51:52 Hypercholestero lemia 44494158 Active 2022 JAYDEN Piña [facility] 3 17:51:57 [...] ) 50 mcg/actuatio n nasal spray,suspen syd [place] 1 spray every day by intranasal route [...] Updated DateTime 3 167.64 cm 25.8 kg/m2 87740.7 8 g 16 /min 100 % 100 % 71 /min 98.9 [degF] 138 mm[Hg] 72 mm[Hg] Anila Cardenas PA - [facility] 3 19:29:41 Date Recorded Body height Body mass index (BMI) Body weight Pain severity - 0-10 verbal numeric rating [Score] - Reported Oxygen saturation Oxygen saturation in Arterial blood by Pulse oximetry Heart rate Respiratory rate Body temperature Systolic blood pressure Diastolic blood pressure Provider Name and Address Organization Details Last Updated DateTime 3 167.64 cm 29.1 kg/m2 25202.6 3 g 0 99 % 99 % [...] SNOMED-CT Code Diagnosis ICD10 Code Diagnosis Note [id number] [place] [address] [address] 03/09/2022 17:43:38 03/09/2022 18:35:13 Acute serous otitis media of bilateral ears 1201109580 323341 H65.03 right ear cochlear implant. narrow canal. left ear external canal normal. Otalgia of left ear 1010 891917 H92.02 Acute sinusitis 85821020 J01.90 [id number] Jhony Ardon [place] [address] [facility] [address] [place] [address] 09/04/2022 18:57:02 09/04/2022 19:47:00 Otitis externa of bilateral ears 2605359628 819521 H60.93 Acute sinusitis 33595004 J01.90 Health Concerns Section Related Observation LastModified by Organization Detai ls LastModified Time None Recorded Concern Status LastModified by Organization Details LastModified Time None Recorded Advance Directives Directive None Recorded Payers Encounter Date Sequence Insurance Name Policy Number Policy Bradley Covered Member ID Bradley Member ID Guarantor Name 03/09/2022 1 [facility] [id number] [facility] [id number] [facility] 09/04/2022 1 [facility] [id number] [facility] [id number] [facility] Notes Date Note Type Note Provider [...] Ardon NP [address] [place], [address], PA - [facility] 03/09/2022 18:33:49 3 [...] Ardon NP [address] [place], [address], PA - [facility] 09/04/2022 19:45:46 OBGyn Episode No OBEpisode recorded.
== END 2024-06-13 16:12 | disposition home or self-care (01) ==
LOC: HO.LAB 16:11
PROVIDERS: PCP Physician Assistant; Visit Provider Nurse Practitioner Family
DX: K64.9 Unspecified hemorrhoids (principal)
CPT/HCPCS: 36415; 85025

== ENCOUNTER 2024-06-23 15:29 | Outpatient (AMB) | payer OTHER, SELFPAY ==
--- NOTE | 2024-06-23 15:34 | MHC.OFFVIS ---
Vital Signs 06/23/24 15:35 Height 5 ft 6 in Weight 170 lb BMI 27.4 BP 152/76 H Blood Pressure Location Rt brachial Position Sitting Pulse 82 Pulse Source Pulse Oximeter Pulse Oximetry (%) 98 Oxygen Delivery Method Room Air Intake Visit Reasons: hemo 4w Intake Note: ESTABLISHED PATIENT for mgmt of hemorrhoids. FUV x4 weeks. CC; Pt denies any GI sx at this time. Pt did not end up taking the citrucel as they wanted to keep it as an option but try lifestyle and diet changes first. Pt has been doing well and has not had any continued constipation or evidence of hemorrhoids. Children'S Nursery Assistant Required: No Accompanied by: Self / Same As Patient Allergies No Known Allergies Allergy (Verified 06/23/24 15:34) Medication List - Last Reconciled 06/23/24 by Misti Aponte CNP bisacodyl 5 mg PO ONCE 1 day enalapril maleate 5 mg PO DAILY hydrocortisone 1% 1 appl MN BID PRN methylcellulose (laxative) (Citrucel) 500 mg PO DAILY PRN polyethylene glycol 3350 (Miralax) 238 grams PO ONCE HPI HPI hemo 4w: Details: Patient is a 58-year-old female with PMH of hypertension and nicotine dependence. She is here for follow-up on loose stools and blood with wiping. She reports changes in stool consistency, from previously loose stools (type 7) to more formed stools (type 4) since our last visit by increasing fiber intake with apples. She opted not to take the Citrucel. She is using the hydrocortisone ointment intermittently but shares she has not observe any notable bulges or hemorrhoids. The patient described occasional heartburn triggered by specific foods such as chocolate and brownies but denies daily occurrences or need for medication. No abdominal pain, nausea, vomiting, or recent fevers were reported. [facility] Medical History (Updated 06/23/24 @ 17:15 by Misti Aponte CNP) Nicotine dependence Loose stools Blood in stool Uterine fibroid Nicotine dependence, cigarettes, uncomplicated Tubular adenoma of colon (~2019) Essential hypertension Surgical History History of endometrial biopsy History of colonoscopy Family History Mother High blood pressure Diabetes High cholesterol Social History Household Members Other:: boyfriend Housing: House Are you a primary direct support professional caregiver to a significant other at home: No Do you presently have visiting nurse or other home services: No Alcohol intake: current Alcohol intake frequency: a few times a week Patient Tobacco Use Status: Current everyday Tobacco user Tobacco use type: Cigarette Cigarette Packs Per Day: 1 Cigarettes Per Day: 20.0 Years Smoked: 43 e-Cigarette/Vaping Use: Never Used Second Hand Smoke Exposure: Yes service: No Current occupational status: employed 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 [employer] Cognitive needs: No Hearing needs: No Vision needs: No Review of Systems Const Reports as per HPI ENT Reports as per HPI Card Reports as per HPI, Denies no additional complaints, Denies dyspnea and Denies dyspnea on exertion Resp Reports as per HPI, Denies no additional complaints, Denies cough, Denies dyspnea, Denies dyspnea on exertion and Denies stridor GI Reports as per HPI Reports as per HPI Physical Exam Vital Signs: Last Vital Signs Pulse 82 06/23/24 15:35 BP 152/76 H 06/23/24 15:35 Pulse Ox 98 06/23/24 15:35 Oxygen Delivery Method Room Air 06/23/24 15:35 BMI result Body Mass Index 27.4 Const General: healthy appearing, no acute distress and well developed Nutritional Appearance: well nourished Orientation/consciousness: patient oriented x3 HEENT Head: Yes normal to inspection, Yes normocephalic and Yes atraumatic Face and sinus: Yes normal facial exam Eyes General: appearance normal, both eyes and all related structures Neck Neck: Yes normal visual inspection Resp Effort & Inspection: normal respiratory effort, able to speak in complete sentences, no tracheal deviation and symmetric chest movement Auscultation: clear to auscultation bilaterally (to diminished thoughout) Cardio Jugular venous distension: no JVD Rate: regular rate Rhythm: regular rhythm Heart sounds: S1 normal heart sound present, S2 normal heart sound present, no gallops and no murmurs GI Inspection: Yes normal to inspection and No distended Palpation (GI): Soft to palpation, not firm, nontender and No hepatosplenomegaly present Auscultation: normal bowel sounds Neuro General: patient oriented x3 Gait exam (Neuro): Normal gait present Psych Appearance: grossly normal Mental Status: mental status grossly normal Speech and movement: Normal speech and movement present Affect: normal affect Attitude: cooperative Thought process: Normal thought process present Thought content: Normal thought content present Insight: Good insight present (Psych) Judgement: Good judgement present (Psych) Assessment & Plan Assessment & Plan (1) Loose stools: Code(s): R19.5 - Other fecal abnormalities Category: Medical Plan: improving. Plan as below (2) Blood in stool: Code(s): K92.1 - Melena Category: Medical Plan: as below (3) Nicotine dependence, cigarettes, uncomplicated: Comment: (current smoker - onset 14yo, 1ppd x 42yrs, 40 pack year history Code(s): F17.210 - Nicotine dependence, cigarettes, uncomplicated Category: Medical Plan: Current everyday smoker. Offered nicotine patches, She declined assistance with cessation. In the contemplation stage of change. Plan Reassured stool pattern is improving. However, given reports bleeding would like to proceed with further evaluation as below. Pt agreeable after education. Additional Tests: Colonoscopy recommended to rule out bleeding from polyps, ulceration, mass or etc. labs also ordered to evaluate renal function and r/o secondary cause and/or any inflammatory process. Medications: Continue using hydrocodone ointment as needed. Lifestyle Modifications: Continue natural fiber intake through diet (apples, fruits, vegetables). Follow-up after colonoscopy. Time: I spent a total of 25 minutes on the date of encounter which includes: Preparing to see the patient (reviewed previous documentation, test results and medical history) Performing a medically appropriate exam and/or evaluation Ordering medications, tests, and procedures Documenting clinical information in the health record Orders: Orders Calprotectin, Fecal 06/23/24 R19.5 - Other fecal abnormalities C Reactive Protein 06/23/24 R19.5 - Other fecal abnormalities Comprehensive Met. Panel 06/23/24 R19.5 - Other fecal abnormalities TSH reflex Free T4 06/23/24 R19.5 - Other fecal abnormalities Medications: New bisacodyl Take four tablets once for 1 day per colonoscopy instructions 5 mg PO ONCE 1 day 4 tabs 0RF polyethylene glycol 3350 (Miralax) per colonoscopy prep instructions 238 grams PO ONCE 238 grams 0RF Coding Level of Care Code Established Pt Est Pt Level 3 (71159) Patient Type Established Diagnoses Loose stools R19.5 Blood in stool K92.1 Nicotine dependence, cigarettes, uncomplicated F17.210
[2024-06-23 15:35] VITALS: BP 152/76; PULSE 82; O2SAT 98; BMI 27.4
--- OUTSIDE RECORDS SUMMARY | 2024-06-23 15:56 | XMS_ITS | Data Portability ---
Author Organization [facility], [address] Address [address] [place] [address] Assessment No assessment recorded. Plan of Treatment Reminders Order Date Submit Date Provider Last Modified By Organization Details Last Modified Time Details Appointments None recorded. Lab None recorded. Referral None recorded. Procedures None recorded. Surgeries None recorded. Imaging None recorded. Medication Orders prednisone 20 mg tablet 2022 023 [facility], [address] [place], [address], 3 19:45:31 Allergy Relief (fluticason e) 50 mcg/actuati on nasal spray,suspe nsion 2022 023 [facility], [address] [place], [address], 3 19:45:31 neomycin-po lymyxin-hyd rocort 3.5 mg-10,000 unit/mL-1 % ear drops,susp 2022 023 [facility], [address] [place], [address], 3 19:45:32 prednisone 20 mg tablet 2022 023 [facility], [address] [place], [address], 3 19:27:34 Allergy Relief (fluticason e) 50 mcg/actuati on nasal spray,suspe nsion 2022 023 [facility] [address] [facility] [place], [address], 19:27:32 Patient TargetsNo targets recorded. Patient Instructions Encounter Date Encounter Id Patient Instructions Last Modified By Organization Details Last Modified Time 03/09/2022 [id number] hearing loss: ca re instructions [id number] Not [...] care for yourself at home? Take an detp-kdd-ykvrdea pain medicine. Avoid Ibuprofen, Aleve and Aspirin if . If the doctor prescribed antibiotics, take them as directed. Do not stop taking them just because you feel better. You need to take the full course of antibiotics. Be careful when taking ofhp-ona-rhjazdj cold or influenza (flu) medicines and Tylenol [...] taking a prescription pain medicine, take an shmn-nkx-uprurta medicine, such as acetaminophen (Tylenol), ibuprofen (Advil, [...] of antibiotics. Not available 03/09/2022 18:32:58 09/04/2022 [id number] Sinusitis is an infection of the lining [...] care for yourself at home? Take an amuq-viy-mfezbdp pain medicine. Avoid Ibuprofen, Aleve and Aspirin if . If the doctor prescribed antibiotics, take them as directed. Do not stop taking them just because you feel better. You need to take the full course of antibiotics. Be careful when taking llxj-nrb-xvjhllr cold or influenza (flu) medicines and Tylenol [...] deeper into the ear canal. Remain still, mcqt-ekm-hebx-down for about 15 minutes. 3. Keep the [...] about six inches from the ear. 4. Vdor-mxq-rtkpfhm pain medications can relieve discomfort associated with external otitis. Acetaminophen (Tylenol), ibuprofen, or naproxen can be taken, depending on individual preference. 5. Return to the [facility] in about one week. The provider [...] Address Organization Details Recorded Time Hypertensive disorder 29747305 Active 2022 [facility] 3 17:51:52 Hypercholestero lemia 06553084 Active 2022 [facility] 3 17:51:57 [...] ) 50 mcg/actuatio n nasal spray,suspen syd [place] 1 spray every day by intranasal route [...] Updated DateTime 3 167.64 cm 25.8 kg/m2 62865.7 8 g 16 /min 100 % 100 % 71 /min 98.9 [degF] 138 mm[Hg] 72 mm[Hg] Anila Cardenas PA - [facility] 3 19:29:41 Date Recorded Body height Body mass index (BMI) Body weight Pain severity - 0-10 verbal numeric rating [Score] - Reported Oxygen saturation Oxygen saturation in Arterial blood by Pulse oximetry Heart rate Respiratory rate Body temperature Systolic blood pressure Diastolic blood pressure Provider Name and Address Organization Details Last Updated DateTime 3 167.64 cm 29.1 kg/m2 27206.6 3 g 0 99 % 99 % 84 /min 18 /min 97.4 [degF] 156 mm[Hg] 76 mm[Hg] GARY GUTIERREZ PA - [facility] 3 17:54:13 Social History Question Answer Notes LastModified by Organizat ion Details LastModified Time Tobacco Smoking Status Current Every Day Smoker GARY loya PA - [facility] 03/09/2022 17:52:52 Have You Had Direct Contact, Or Contact During Intimacy, With Monkeypox Rash, Scabs, Or Body Fluids From A Person With Monkeypox? No nruszala Information not available 09/04/2022 How Much Tobacco Do You Smoke? 1 PPD Information not available 03/09/2022 Have You Recently Traveled Abroad? No Information not available 03/09/2022 Sex: Unknown Functional Status Question Answer Note LastModified by Organizat ion Details LastModified Time Do you use any illicit or recreational drugs? No Information not available 03/09/2022 Do you or have you ever used any other forms of tobacco or nicotine? No Information not available 03/09/2022 What is your level of alcohol consumption? None Information not available 03/09/2022 Mental Status None recorded. Family History Relationship [...] or 50 mcg/0.25mL dose 05/30/2020 completed Anila loya PA - [facility] 09/04/2022 19:27:15 COVID-19, mRNA, LNP-S, PF, 100 mcg/0.5mL dose or 50 mcg/0.25mL dose 06/27/2020 completed Anila loya PA - [facility] 09/04/2022 19:27:15 COVID-19, mRNA, LNP-S, PF, 100 mcg/0.5mL dose or 50 mcg/0.25mL dose 01/14/2021 completed Anila loya PA - [facility] 09/04/2022 19:27:15 Influenza, split virus, quadrivalent, PF 12/20/2020 completed Anila loya, PA - [facility] 09/04/2022 19:27:15 Influenza, split virus, quadrivalent, PF 01/23/2022 completed Anila loya, PA - [facility] 09/04/2022 19:27:15 Past Encounters Encounter ID Performer Location Encounter Start Date Encounter Closed Date Diagnosis/Indication Diagnosis SNOMED-CT Code Diagnosis ICD10 Code Diagnosis [place] [id number] [place] [address] [address] 03/09/2022 17:43:38 03/09/2022 18:35:13 Acute serous otitis media of bilateral ears 5736588592 715284 H65.03 right ear cochlear implant. narrow canal. left ear external canal normal. Otalgia of left ear 1010 398132 H92.02 Acute sinusitis 21017122 J01.90 [id number] Jhony Ardon [place] [address] [place] [address] 09/04/2022 18:57:02 09/04/2022 19:47:00 Otitis externa of bilateral ears 6397374876 343821 H60.93 Acute sinusitis 06858057 J01.90 Health Concerns Section Related Observation LastModified by Organization Detai ls LastModified Time None Recorded Concern Status LastModified by Organization Details LastModified Time None Recorded Advance Directives Directive None Recorded Payers Insurance Date Sequence Insurance Name Policy Number Policy Bradley Covered Member ID Bradley Member ID Guarantor Name 09/04/2022 1 [facility] [id number] [facility] [id number] [facility] Notes Date Note Type Note Provider [...] Ardon NP [address] [place], [id number], [facility] 03/09/2022 18:33:49 3 text/html CongestionReported bypatient.Notes:nasal [...] Ardon NP [address] [place], [id number], [place] [facility] 09/04/2022 19:45:46 OBGyn Episode No OBEpisode recorded.
== END 2024-06-23 16:30 | disposition home or self-care (01) ==
LOC: HO.HGI 15:30
PROVIDERS: PCP Internal Medicine; Visit Provider Nurse Practitioner Family
DX: K92.1 Melena (principal); F17.210 Nicotine dependence, cigarettes, uncomplicated
CPT/HCPCS: 99213

== ENCOUNTER → 2024-06-23 15:29 | Outpatient (BNVA) | payer OTHER, SELFPAY | PROVIDERS: PCP Internal Medicine; Visit Provider Nurse Practitioner Family ==

== ENCOUNTER 2024-07-01 06:04 | Outpatient (REF) | payer OTHER, SELFPAY ==
[2024-07-01 10:42] LABS: Alanine Aminotransferase 17 U/L (0-31); Albumin Level 4.2 g/dL (3.5-5.0); Alkaline Phosphatase 73 U/L (39-117); Anion Gap 11 (12-20); Aspartate Amino Transferase 18 U/L (5-31); Bilirubin Total 0.3 mg/dL (0.0-1.0); Blood Urea Nitrogen 14 mg/dL (9-16); C Reactive Protein 0.12 mg/dL (< or = 0.50); Carbon Dioxide 24 mmol/L (22-29); Chloride 110 mmol/L (96-108); Estimated Glomerular Filt Rate > 60; Glucose Random 88 mg/dL (60-115); Potassium 4.2 mmol/L (3.3-5.1); Sodium 141 mmol/L (135-145); Total Protein 6.8 g/dL (6.5-8.0)
== END 2024-07-01 06:05 | disposition home or self-care (01) ==
LOC: HO.HMGCLDS 06:04
PROVIDERS: PCP Physician Assistant; Visit Provider Nurse Practitioner Family
DX: R19.5 Other fecal abnormalities (principal)
CPT/HCPCS: 36415; 80053; 84443; 86140